=== PATIENT | female | born 1985 | race Caucasian/White ===

== ENCOUNTER 2023-06-04 09:41 | Emergency (ER) | payer BC, OTHER ==
[2023-06-04] MEDS: Proparacaine 0.5% Ophth Soln 15 ML Bottle EYELF PRN (09:53)
[2023-06-04] MEDS: Fluorescein 1 MG Ophth Strip EYELF ONE (09:53)
== END 2023-06-04 10:25 | disposition home or self-care (01) ==
LOC: VM.ED 09:41
DX: S05.02XA Injury of conjunctiva and corneal abrasion without foreign body, left eye, initial encounter (principal); W21.03XA Struck by baseball, initial encounter
CPT/HCPCS: 99283; J3490